=== PATIENT | male | born 1985 | race Caucasian/White ===

== ENCOUNTER 2019-06-26 23:12 | Emergency (ER) | payer OTHER ==
[~2019-06-26] VITALS: Ht 172.7 cm; Wt 61.7 kg
== END 2019-06-27 00:40 | disposition home or self-care (01) ==
LOC: ER 23:12
DX: S05.11XA Contusion of eyeball and orbital tissues, right eye, initial encounter (principal); W21.00XA Struck by hit or thrown ball, unspecified type, initial encounter
CPT/HCPCS: 99283